=== PATIENT | male | born 1980 ===

== ENCOUNTER 2020-05-25 19:16 | Emergency (ER) | payer OTHER, SELFPAY ==
--- NOTE | ~2020-05-25 | XR_ITS ---
EXAMINATION: XR LUMBOSACRAL SPINE CLINICAL INFORMATION: Back pain COMPARISON: None TECHNIQUE: Three views of the lumbosacral spine. FINDINGS: The vertebral bodies and posterior elements are normal. There is mild straightening of the lumbar spine along with minimal scoliosis, possibly positional, convex to the right.. The disc spaces are preserved. The paraspinal soft tissues are normal. XR/XR lumbar spine 2-3V IMPRESSION: Unremarkable examination aside from mild straightening of the lumbar spine with possible mild scoliosis.
[2020-05-25 20:58] VITALS: BP 112/71; PULSE 87; RESP 18; TEMP 36.8; O2SAT 97; BMI 28.3
[2020-05-25 22:07] VITALS: BP 103/64; PULSE 74; RESP 18; O2SAT 97
--- NOTE | 2020-05-25 23:43 | ED.BACK ---
HPI - Back Pain/Injury General Chief Complaint: Back Pain/Injury Stated Complaint: back pain Time Seen by Provider: 05/25/20 23:42 Related Data Previous Rx's Medication Instructions Recorded cyclobenzaprine 10 mg PO TID PRN #30 tab 05/26/20 diazepam [Valium] 2 mg PO BID PRN #14 tab 05/26/20 ibuprofen 600 mg PO Q8H PRN #30 tab 05/26/20 lidocaine 2 patch TOPICAL DAILY PRN #15 ea 05/26/20 Allergies Allergy/AdvReac Type Severity Reaction Status Date / Time No Known Allergies Allergy Verified 05/25/20 20:57 [facility] Past Medical History Medical History Back pain Social History Social History Smoking Status: Never smoker Use of substances other than those prescribed or required for medical reasons: No Advance Directives: No Physical Exam Vital Signs: Vital Signs: Last Vital Signs Temp 98.6 F 05/25/20 23:54 Pulse 87 05/25/20 23:54 Resp 15 05/25/20 23:54 BP 124/77 05/25/20 23:54 Pulse Ox 99 05/25/20 23:54 Body Mass Index 28.3 MDM - Back Pain/Injury Differential Diagnosis Differential diagnosis: Likely lumbar radiculopathy, sciatica, strain of lumbar region and thoracic back pain Medical Records Attestation: I reviewed the patient's medical records. Lab Data Attestation: I reviewed the patient's lab results. Imaging Data Lumbar spine x-ray: Attestation: I personally reviewed and interpreted this imaging study as follows: Radiologist's impression: EXAMINATION: XR LUMBOSACRAL SPINE CLINICAL INFORMATION: Back pain COMPARISON: None TECHNIQUE: Three views of the lumbosacral spine. FINDINGS: The vertebral bodies and posterior elements are normal. There is mild straightening of the lumbar spine along with minimal scoliosis, possibly positional, convex to the right.. The disc spaces are preserved. The paraspinal soft tissues are normal. XR/XR lumbar spine 2-3V IMPRESSION: Unremarkable examination aside from mild straightening of the lumbar spine with possible mild scoliosis. Discharge Plan Discharge Clinical Impression: Strain of lumbar region Patient Disposition: Home, Self-Care Instructions: Low Back Strain (ED), Lower Back Exercises (ED), Core Strengthening Exercises (ED) Additional Instructions: Te evaluaron para kimberly cepa lumbar. Las radiograf?as son negativas para los hallazgos agudos que requieren kimberly intervenci?n emergente, muestra hallazgos de escoliosis. Por favor, utilice parches de lidoca?na, Motrin y Flexeril seg?n sea necesario para el manejo del dolor. Usted puede considerar hacer un seguimiento con lindsay m?dico de atenci?n primaria, ya que es posible que necesite fisioterapia para esta lesi?n. Esme por elegir west departamento de emergencias para lindsay evaluaci?n. Por favor, fawn un seguimiento con el m?dico de atenci?n primaria seg?n sea necesario. Regrese al servicio de emergencias para cualquier s?ntoma nuevo, preocupante o que empeore. You were evaluated for a lumbar strain. X-rays are negative for acute findings requiring emergent intervention, shows findings of scoliosis. Please use lidocaine patches, Motrin and Flexeril as needed for pain management. You may consider following up with your primary care physician as you may need physical therapy for this injury. Thank you for choosing this emergency department for evaluation. Please follow-up with primary care physician as needed. Return to the emergency department for any new, concerning, or worsening symptoms. Prescriptions: New lidocaine 5 % adhesive patch,medicated 2 patch topical DAILY PRN (Reason: pain) Qty: 15 RF: 0 diazepam [Valium] 2 mg tablet 2 mg PO BID PRN (Reason: Muscle spasms) Qty: 14 RF: 0 cyclobenzaprine 10 mg tablet 10 mg PO TID PRN (Reason: muscle spasm) Qty: 30 RF: 0 ibuprofen 600 mg tablet 600 mg PO Q8H PRN (Reason: pain) Qty: 30 RF: 0 Referrals: Preet Walsh MD [Physician] - 2 days (lumbar strain)
[2020-05-25 23:54] VITALS: BP 124/77; PULSE 87; RESP 15; TEMP 37; O2SAT 99
[2020-05-26] MEDS: Lidocaine 4 % Patch ADH..PATCH 2 PATCH TRANSDERMA (00:40)
[2020-05-26] MEDS: Ketorolac Tromethamine 60 MG/2 ML VIAL IM (00:40)
== END 2020-05-26 01:59 | disposition home or self-care (01) ==
PROVIDERS: Emergency Provider Student in an Organized Health Care Education/Training Program
DX: S39.012A Strain of muscle, fascia and tendon of lower back, initial encounter (principal); X50.1XXA Overexertion from prolonged static or awkward postures, initial encounter; Y93.9 Activity, unspecified; Y92.019 Unspecified place in single-family (private) house as the place of occurrence of the external cause; Y99.9 Unspecified external cause status
CPT/HCPCS: 72100; 96372; 99284; J1885

== ENCOUNTER 2023-05-10 13:30 | Emergency (ER) | payer MEDICAID, SELFPAY ==
[2023-05-10 13:56] VITALS: BP 140/101; PULSE 87; RESP 18; TEMP 36.5; O2SAT 99; BMI 28.2
--- NOTE | 2023-05-10 13:56 | ED.GENADULT ---
HPI - General Adult General Chief complaint: Abdominal Pain Stated complaint: Stomach Pain Time Seen by Provider: 05/10/23 21:15 History of Present Illness HPI narrative: The patient is a 42-year-old male who presents with about 1 week of epigastric abdominal pain. He says he has had pains like this before, perhaps about 2 years ago. He says that that time he took Zantac for the pain. He says that over the last several days he is tried Prilosec [id number] without relief. He says the pain has gotten bad despite his use of [id number] medications and therefore he came to the emergency room. He says he can not take the pain anymore. He says that he vomited while he was in the waiting room. There have been no black stools. Related Data Previous Rx's Medication Instructions Recorded cyclobenzaprine 10 mg tablet 10 mg PO TID PRN muscle spasm #30 05/26/20 tabs diazepam 2 mg tablet (Valium) 2 mg PO BID PRN Muscle spasms #14 05/26/20 tabs ibuprofen 600 mg tablet 600 mg PO Q8H PRN pain #30 tabs 05/26/20 lidocaine 5 % topical patch 2 patch topical DAILY PRN pain #15 05/26/20 ea omeprazole 40 mg capsule,delayed 40 mg PO DAILY #30 caps 05/10/23 release sucralfate 1 gram tablet 1 g PO TID PRN abdominal pain #60 05/10/23 tabs Allergies Allergy/AdvReac Type Severity Reaction Status Date / Time No Known Allergies Allergy Verified 05/25/20 20:57 Review of Systems Review of Systems: Yes all other systems are reviewed and are negative PMFSH Past Medical History Medical History Back pain Social History Social History Alcohol intake: never Smoked in Last 30 Days: No Use of substances other than those prescribed or required for medical reasons: No Advance Directives: No Advance Directives Information Provided: No Physical Exam ED Vital Signs: Vital Signs - 24 hr 05/10/23 13:56 05/10/23 20:53 Temperature 97.7 F 97.7 F Pulse Rate 87 85 Respiratory Rate 18 16 Blood Pressure 140/101 H 100/66 Pulse Oximetry 99 99 Oxygen Delivery Method Room Air Room Air BMI result Body Mass Index 28.2 Const Other: The patient is awake and alert. He is pleasant cooperative. He does not appear in acute distress. HENMT Other: The face is symmetrical. ?Mucous membranes moist. Eyes Other: Pupils are round equal, conjunctivae are clear, extraocular movements intact Neck Other: Moving his neck easily Resp Effort & Inspection: normal respiratory effort Auscultation: clear to auscultation bilaterally Cardio Rate: regular rate Rhythm: regular rhythm Heart sounds: S1 normal heart sound present and S2 normal heart sound present GI Other: There is mild tenderness across the upper abdomen without rebound or guarding. Tenderness seems maximal in the epigastrium. The lower abdomen seems nontender. Skin Other: Skin is dry and unremarkable. Neuro Other: The patient is awake, alert, pleasant, cooperative. Speech is clear. Moving all 4 extremities normally. Grossly neurologically intact. Extrem Other: No peripheral edema Course Course Course Narrative: Patient complains of 1 week of abdominal pain getting worse, there is some nausea but no vomiting, pain is worst in upper abdomen, denies chest pain or shortness of breath Labs ordered, given Zofran in triage This is rapid medical exam done in triage pending full evaluation and dispo by ER provider Reevaluation(s) Reevaluation #1: The patient was treated with 2 g of liquid sucralfate with improvement of his pain. I think he may be discharged on omeprazole 40 mg daily with an additional prescription for sucralfate 1 g t.i.d. p.r.n.. He should follow up with his PCP and possibly see a top closer. He should return if worse. Medications Administered Discontinued Medications Generic Name Dose Route Start Last Admin Trade Name Freq PRN Reason Stop Dose Admin Ondansetron HCl 4 mg 05/10/23 13:58 05/10/23 14:00 Ondansetron Odt 4 Mg Tab.Rapdis TRANSLINGU 05/10/23 13:59 4 mg ONCE ONE Administration Sucralfate 2 gm 05/10/23 21:35 05/10/23 21:43 Sucralfate Oral Suspension 1 Gm/10 Ml Oral.Susp PO 05/10/23 21:36 2 gm ONCE ONE Administration Medical Decision Making Medical Decision Making [facility] Narrative: The patient presents with 1 week of epigastric abdominal pain. He seems to imply that he has had this before and it responded to antacid medications but that currently it is not responding to antacid medications. He has had no black stools. Differential Diagnosis The patient presents with upper abdominal pain this seems most likely to be gastritis. He does not describe any black stools that would suggest an upper GI bleed. He does not describe a pattern that would suggest biliary colic. He has no right lower quadrant pain to suggest appendicitis. Lab Data Labs are largely reassuring. His white count is mildly elevated at 13,000 thousand but his CRP is normal. His BUN and creatinine are normal. Hemoglobin is excellent. 05/10/23 16:16 05/10/23 16:16 Labs: Lab Results 05/10/23 05/10/23 Range/Units 16:16 21:52 WBC 13.9 H (4.8-10.8) X10*3/uL RBC 5.25 (4.60-5.80) X10*6/uL Hgb 15.7 (14.0-18.0) g/dl Hct 45.6 (42.0-52.0) % MCV 86.9 (80.0-98.0) fL MCH 29.9 (27.0-33.0) pg MCHC 34.4 (31.0-36.0) g/dl RDW 11.7 (11.0-16.0) % Plt Count 326 (160-400) X10*3/uL MPV 9.4 (9.4-12.4) fL Immature Gran % (Auto) 0.4 (0.0-0.4) % Neut % (Auto) 72.7 (45-73) % Lymph % (Auto) 13.8 L (20-40) % [place] % (Auto) 4.8 (2-11) % Eos % (Auto) 8.0 H (0-4) % Baso % (Auto) 0.3 (0-2) % Lymph # (Auto) 1.9 (1.2-4.9) X10*3/uL [place] # (Auto) 0.7 (0.1-1.2) X10*3/uL Eos # (Auto) 1.1 H (0.0-0.4) X10*3/uL Baso # (Auto) 0.0 (0.0-0.2) X10*3/uL Abs Immat Gran (auto) 0.06 H (0.00-0.03) X10*3/uL Absolute Neuts (auto) 10.1 H (2.0-8.3) x10*3/uL Absolute Nucleated RBC 0.000 (0.0-0.012) X10*3/uL Nucleated RBC % (auto) 0.0 (0.0-0.2) /100WBC Sodium 140 (135-145) mmol/L Potassium 4.4 (3.3-5.1) mmol/L Chloride 104 (96-108) mmol/L Carbon Dioxide 30 H (22-29) mmol/L Anion Gap 10 L (12-20) BUN 15 (9-16) mg/dL Creatinine 0.86 (0.5-1.4) mg/dL Estim Creat Clear Calc 100.6 Estimated GFR > 60 Random Glucose 97 (60-115) mg/dL Calcium 9.9 (8.4-10.2) mg/dL Total Bilirubin 0.5 (0.0-1.0) mg/dL Direct Bilirubin 0.2 (0.0-0.5) mg/dL AST 20 (5-37) U/L ALT 22 (0-40) U/L Alkaline Phosphatase 88 (39-117) U/L C-Reactive Protein 0.11 (< or = 0.50) mg/dL Total Protein 8.0 (6.5-8.0) g/dL Albumin 4.7 (3.5-5.0) g/dL Lipase 25 (8-78) U/L Urine Color Yellow Urine Appearance Clear Urine pH 6.5 (5.0-9.0) Ur Specific [place] 1.025 (1.005-1.025) Urine Protein Negative (Neg-Trace) mg/dL Urine Glucose (UA) Negative (Negative) mg/dL Urine Ketones Trace (Negative) mg/dL Urine Blood Negative (Negative) Urine Nitrite Negative (Negative) Ur Leukocyte Esterase Negative (Negative) COVID-19 (JATIN) Negative (Negative) COVID-19 Clin Com See Note Discharge Plan Discharge Clinical Impression: Epigastric abdominal pain, Gastritis Patient Disposition: Home, Self-Care Instructions: Gastritis (ED) Additional Instructions: I think that you very likely have gastritis, an irritation of the lining of your stomach related to stomach acid issues. Please take the omeprazole once a day on a regular basis. There is also a prescription for sucralfate. You may take this medication on an as-needed basis up to 3 times a day. You may find this sucralfate is more effective if you crushed the tablet and mixed it with water to make a slurry. Please contact your regular doctor's office in the morning to make a follow-up appointment to discuss these pains further. You may need to see a top closer. Return to the emergency room if worse Prescriptions: New omeprazole 40 mg capsule,delayed release(DR/EC) 40 mg PO DAILY Qty: 30 0RF sucralfate 1 gram tablet 1 g PO TID PRN (Reason: abdominal pain) Qty: 60 0RF No Action lidocaine 5 % adhesive patch,medicated 2 patch topical DAILY PRN (Reason: pain) Qty: 15 0RF Rx Instructions: leave on most painful area for up to 12 hrs diazepam [Valium] 2 mg tablet 2 mg PO BID PRN (Reason: Muscle spasms) Qty: 14 0RF cyclobenzaprine 10 mg tablet 10 mg PO TID PRN (Reason: muscle spasm) Qty: 30 0RF ibuprofen 600 mg tablet 600 mg PO Q8H PRN (Reason: pain) Qty: 30 0RF Referrals: Crispin Ochoa MD [Physician] - (Gastritis) Interventions: ED Discharge Assessment Last Done: 05/10/23 22:19 Discharge Date/Time: 05/10/23 22:19
[2023-05-10] MEDS: Ondansetron ODT 4 MG TAB.RAPDIS TRANSLINGU (14:00)
[2023-05-10 16:21] LABS: MANUAL DIFF FLAG NO
[2023-05-10 16:24] LABS: Basophils Percent Auto 0.3 % (0-2); Eosinophils Absolute Auto 1.1 X10*3/uL (0.0-0.4); Hematocrit 45.6 % (42.0-52.0); Hemoglobin 15.7 g/dl (14.0-18.0); Imm Gran Abs Auto 0.06 X10*3/uL (0.00-0.03); Imm Gran Pct Auto 0.4 % (0.0-0.4); Lymphocytes Absolute Auto 1.9 X10*3/uL (1.2-4.9); Lymphocytes Percent Auto 13.8 % (20-40); Mean Corpuscular HGB Conc 34.4 g/dl (31.0-36.0); Mean Corpuscular Hemoglobin 29.9 pg (27.0-33.0); Mean Corpuscular Volume 86.9 fL (80.0-98.0); Mean Platelet Volume 9.4 fL (9.4-12.4); Monocytes Absolute Auto 0.7 X10*3/uL (0.1-1.2); Monocytes Percent Auto 4.8 % (2-11); Neutrophils Absolute Auto 10.1 x10*3/uL (2.0-8.3); Neutrophils Percent Auto 72.7 % (45-73); Platelet Count 326 X10*3/uL (160-400); Red Blood Count 5.25 X10*6/uL (4.60-5.80); Red Cell Distribution Width 11.7 % (11.0-16.0); White Blood Count 13.9 X10*3/uL (4.8-10.8)
[2023-05-10 16:37] LABS: COVID-19 Test Negative (Negative); IDNOW Serial# 152EDE1D
[2023-05-10 16:43] LABS: Alanine Aminotransferase 22 U/L (0-40); Albumin Level 4.7 g/dL (3.5-5.0); Alkaline Phosphatase 88 U/L (39-117); Anion Gap 10 (12-20); Bilirubin Direct 0.2 mg/dL (0.0-0.5); Bilirubin Total 0.5 mg/dL (0.0-1.0); Blood Urea Nitrogen 15 mg/dL (9-16); Calcium 9.9 mg/dL (8.4-10.2); Carbon Dioxide 30 mmol/L (22-29); Chloride 104 mmol/L (96-108); Creatinine Clr Calc Pharmacy 100.6; Estimated Glomerular Filt Rate > 60; Glucose Random 97 mg/dL (60-115); Lipase 25 U/L (8-78); Potassium 4.4 mmol/L (3.3-5.1); Sodium 140 mmol/L (135-145)
[2023-05-10 16:57] LABS: Aspartate Amino Transferase 20 U/L (5-37)
[2023-05-10 20:53] VITALS: BP 100/66; PULSE 85; RESP 16; TEMP 36.5; O2SAT 99
[2023-05-10 21:38] LABS: C Reactive Protein 0.11 mg/dL (< or = 0.50)
[2023-05-10] MEDS: Sucralfate Oral Suspension 1 GM/10 ML ORAL.SUSP 2 GM PO (21:43)
[2023-05-10 22:03] LABS: Appearance Urine Clear; Color Urine Yellow; Glucose Urine UA Negative (Negative); Leukocyte Esterase Urine Negative (Negative); Nitrite Urine Negative (Negative); PH 6.5 (5.0-9.0); Specific Gravity - Urine 1.025 (1.005-1.025); Urine Blood Negative (Negative); Urine Ketones Trace mg/dL (Negative); Urine Protein Negative (Neg-Trace)
== END 2023-05-10 22:19 | disposition home or self-care (01) ==
PROVIDERS: Physician Assistant Medical; Emergency Provider Emergency Medicine
DX: K29.70 Gastritis, unspecified, without bleeding (principal); R10.13 Epigastric pain; Z11.52 Encounter for screening for COVID-19
CPT/HCPCS: 36415; 80048; 80076; 81003; 83690; 85025; 86140; 87635; 99283; 99284

== ENCOUNTER 2023-06-11 18:53 | Emergency (ER) | payer OTHER, MEDICAID, SELFPAY ==
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
[2023-06-11 19:03] VITALS: BP 122/75; BP 134/90; PULSE 105; PULSE 90; RESP 18; TEMP 36.7; O2SAT 98; O2SAT 99; BMI 29.2
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
[2023-06-11] MEDS: Ibuprofen 600 MG TABLET PO (19:24)
[2023-06-11] MEDS: Acetaminophen 325 MG TABLET 650 MG PO (19:25)
[2023-06-11 20:25] VITALS: BP 122/75; PULSE 87; RESP 18; TEMP 36.7; O2SAT 99
== END 2023-06-11 20:28 | disposition home or self-care (01) ==
PROVIDERS: Emergency Provider Internal Medicine
DX: S39.012A Strain of muscle, fascia and tendon of lower back, initial encounter (principal); V89.2XXA Person injured in unspecified motor-vehicle accident, traffic, initial encounter; Y93.9 Activity, unspecified; Y92.9 Unspecified place or not applicable; Y99.9 Unspecified external cause status
CPT/HCPCS: 72100; 99283